=== PATIENT | male | born 1970 | race Caucasian/White ===

== ENCOUNTER 2021-11-27 13:00 | Emergency (ER) | payer OTHER, SELFPAY ==
[2021-11-27 13:17] VITALS: BP 156/90; PULSE 85; RESP 18; TEMP 36.8; O2SAT 99; BMI 32.7
--- NOTE | 2021-11-27 13:21 | DI.RAD.S_ITS ---
PROCEDURE: XR ANKLE LT MIN 3V INDICATIONS: Left ankle pain after fall TECHNIQUE: 3 views of the ankle were acquired. COMPARISON: None. FINDINGS: Bones: There is comminuted, nondisplaced calcaneal fracture.. Ankle mortise is normally aligned. No suspicious bony lesions. Posterior calcaneal spurring at the Achilles tendon insertion. Soft tissues: No tibiotalar joint effusion. Achilles tendon appears normal. IMPRESSION: Nondisplaced calcaneal fracture. Dictated by: Sapna Hernandez M.D. on 11/27/2021 at 14:31 Approved by: Sapna Hernandez M.D. on 11/27/2021 at 14:33
--- NOTE | 2021-11-27 15:15 | DI.CT.S_ITS ---
PROCEDURE: CT LE LT W CON INDICATIONS: calcaneal fracture, mid food tenderness with plantar ecchymo TECHNIQUE: Noncontrast 1-1.5 mm axial sections acquired from above the tibiotalar joint to the bottom of the calcaneus, with coronal and sagittal reformats. COMPARISON: None. FINDINGS: Image quality: Excellent. Bones: Comminuted fracture of the calcaneus which extends to the anterior, middle, and posterior articular surfaces. The remaining visualized osseous structures appear maintained. No widening of the ankle mortise. Dorsal calcaneal enthesophyte. Bipartite medial hallux sesamoid. Soft tissues: Diffuse soft tissue edema about the calcaneus and dorsal midfoot. IMPRESSION: Comminuted fracture of the calcaneus as detailed above. Dictated by: Bentley Shea M.D. on 11/27/2021 at 16:26 Approved by: Bentley Shea M.D. on 11/27/2021 at 16:31
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
[2021-11-27] MEDS: OXYCODONE/ACETAMINOPHEN 5/325 TABLET 1 TAB PO (17:02)
[2021-11-27 18:06] VITALS: BP 152/91; PULSE 78; RESP 16; O2SAT 99
== END 2021-11-27 18:28 | disposition home or self-care (01) ==
PROVIDERS: Emergency Provider Nurse Practitioner Critical Care Medicine; PCP Student in an Organized Health Care Education/Training Program
DX: S92.062A Displaced intraarticular fracture of left calcaneus, initial encounter for closed fracture (principal); X58.XXXA Exposure to other specified factors, initial encounter; Y93.39 Activity, other involving climbing, rappelling and jumping off; Y92.89 Other specified places as the place of occurrence of the external cause
CPT/HCPCS: 73610; 73700; 99284